=== PATIENT | female | born 1995 | race Caucasian/White ===

== ENCOUNTER 2018-08-30 10:31 | Emergency (ER) | payer MEDICAID, OTHER ==
[~2018-08-30] VITALS: Ht 167.6 cm; Wt 54.0 kg
[2018-08-30 10:31] VITALS: BP 114/63
--- NOTE | 2018-08-30 10:50 | NUR ---
SEEN AND EXAMINED BY DR. SEARS.
[2018-08-30] MEDS ORDERED: IBUPROFEN 400 MG TABLET ONE (10:55)
--- NOTE | 2018-08-30 10:59 | NUR ---
PT SIGNED PRENANCY WAIVER. CLEAR FOR XRAY.
[2018-08-30] MEDS ORDERED: IBUPROFEN 400 MG TABLET PO ONE (11:00)
--- NOTE | 2018-08-30 11:04 | NUR ---
PT IS WHEELED TO XRAY VIA WHEELCHAIR.
--- NOTE | 2018-08-30 11:51 | NUR ---
Patient discharged to home in stable condition. Written and verbal after care instructions given. Patient verbalizes understanding of instruction.
== END 2018-08-30 11:52 | disposition home or self-care (01) ==
LOC: ER 10:39
DX: S49.82XA Other specified injuries of left shoulder and upper arm, initial encounter (principal); Z90.89 Acquired absence of other organs; Z98.890 Other specified postprocedural states; Z88.0 Allergy status to penicillin; W20.8XXA Other cause of strike by thrown, projected or falling object, initial encounter; Y93.89 Activity, other specified; Y92.89 Other specified places as the place of occurrence of the external cause; Y99.8 Other external cause status
CPT/HCPCS: 73030-TC

== ENCOUNTER 2019-02-22 18:25 | Emergency (ER) | payer OTHER ==
[~2019-02-22] VITALS: Ht 167.6 cm; Wt 53.1 kg
[2019-02-22 18:48] VITALS: BP 113/63
== END 2019-02-22 19:26 | disposition home or self-care (01) ==
LOC: ER 18:30
DX: L55.0 Sunburn of first degree (principal); Z90.89 Acquired absence of other organs; Z98.890 Other specified postprocedural states; Z88.0 Allergy status to penicillin